=== PATIENT | male | born 1980 | race Hispanic/Latino ===

== ENCOUNTER 2017-12-31 19:30 | Emergency (ER) | payer MEDICARE ==
[~2017-12-31] VITALS: Ht 170.2 cm; Wt 82.6 kg
[2017-12-31] MEDS ORDERED: LIDOCAINE JELLY 2% 10ML URO-JET TOP ONE (21:00)
[2017-12-31] MEDS ORDERED: BELLADONNA/OPIUM 30 MG SUPP RC STA (22:14)
[2017-12-31 22:23] LABS: BILIRUBIN,URINE NEGATIVE (NEGATIVE); CLARITY,URINE CLEAR (CLEAR); COLOR,URINE YELLOW (YELLOW); KETONES,URINE NEGATIVE (NEGATIVE); LEUKOCYTE ESTERASE ,URINE NEGATIVE (NEGATIVE); NITRITE,URINE NEGATIVE (NEGATIVE); PROTEIN,URINE DIPSTICK NEGATIVE (NEGATIVE); URINE UROBILINOGEN 0.2 mg/dL (0.2 - 1)
[2017-12-31 22:51] LABS: BACTERIA,URINE RARE /HPF; EPITHELIAL CELLS,URINE RARE /LPF; WBC,URINE (MAN) 0-5 /HPF (0-5)
== END 2018-01-01 00:10 | disposition home or self-care (01) ==
LOC: ER 19:30
DX: R33.9 Retention of urine, unspecified (principal); F41.9 Anxiety disorder, unspecified; G89.29 Other chronic pain
CPT/HCPCS: 51700; 81001; 87086; 99283